=== PATIENT | male | born 1995 | race Hispanic/Latino ===

== ENCOUNTER 2017-05-14 21:02 | Emergency (ER) | payer SELFPAY | END 2017-05-14 21:41 | disposition home or self-care (01) | LOC: EDH 21:02 | DX: S61.214A Laceration without foreign body of right ring finger without damage to nail, initial encounter (principal); F41.9 Anxiety disorder, unspecified; Z88.0 Allergy status to penicillin; X58.XXXA Exposure to other specified factors, initial encounter; Y93.89 Activity, other specified; Y92.89 Other specified places as the place of occurrence of the external cause; Y99.8 Other external cause status | CPT/HCPCS: 99281 ==